=== PATIENT | female | born 1985 | race Caucasian/White ===

== ENCOUNTER → 2018-10-06 10:06 | Outpatient (CLI) | payer OTHER, SELFPAY ==
[2018-10-06 11:49] LABS: Free T4, Direct Thyroxine 1.03 ng/dL (0.78-2.19)
[2018-10-06 12:03] LABS: Thyroid Stimulating Hormone 2.43 uIU/mL (0.47-4.68)
[2018-10-06 12:30] LABS: Testosterone 39.6 ng/dL (5.71-77.0)
[2018-10-08 16:21] LABS: Anti Thyroglobulin Antibody 1 IU/mL (< 2); Thyroid Peroxidase Antibodies 2 IU/mL (< 9)
== END ==
PROVIDERS: PCP Family Medicine; Visit Provider Family Medicine
DX: E03.8 Other specified hypothyroidism (principal)
CPT/HCPCS: 36415; 84403; 84439; 84443; 86376; 86800

== ENCOUNTER → 2020-09-02 16:12 | Outpatient (CLI) | payer OTHER, SELFPAY ==
--- NOTE | 2020-09-02 | DI.RAD.S_ITS ---
PROCEDURE: XR CERVICAL SPINE 2V OR 3V INDICATIONS: Cervicalgia/Headache TECHNIQUE: 3 view(s) of the cervical spine were acquired. COMPARISON: None. FINDINGS: Bones: No fracture. Disc spaces appear grossly preserved. Diffuse mild facet arthropathy Soft tissues: No prevertebral soft tissue swelling. IMPRESSION: Mild facet arthropathy Dictated by: Cuate Christian M.D. on 09/02/2020 at 17:09 Approved by: Cuate Christian M.D. on 09/02/2020 at 17:12
== END ==
PROVIDERS: PCP Family Medicine; Referring Provider Chiropractor; Visit Provider Chiropractor
DX: M54.2 Cervicalgia (principal); R51.0 Headache with orthostatic component, not elsewhere classified; M47.812 Spondylosis without myelopathy or radiculopathy, cervical region
CPT/HCPCS: 72040

== ENCOUNTER → 2020-09-05 08:33 | Outpatient (CLI) | payer OTHER, SELFPAY ==
--- NOTE | 2020-09-05 09:16 | DI.CT.S_ITS ---
PROCEDURE: CT SINUS SCREEN WO CON INDICATIONS: Chronic sinusitis, unspecified TECHNIQUE: Noncontrast 3.0 mm axial images acquired from the frontal sinuses to the mid-sella, with coronal and sagittal reformats. For radiation dose reduction, the following was used: automated exposure control, adjustment of mA and/or kV according to patient size. COMPARISON: None. FINDINGS: Image quality: Excellent. Paranasal sinuses are normally aerated. No mucosal thickening identified. No air-fluid levels. The ostiomeatal units are patent bilaterally. No osseous thickening, osseous remodeling or osseous erosive changes. Nasal septum is midline. No edwin bullosa or paradoxical turbinates. Type 2 cribriform plate noted. No variance in the ethmoid roof anatomy. The anterior ethmoid artery notches are protected bilaterally. No frontal recess cells. Sphenoid pneumatization pattern is sellar incomplete. Type 2 optic canals. IMPRESSION: No paranasal sinus mucosal thickening or air-fluid levels. Dictated by: Caity Horne MD, PhD on 09/05/2020 at 11:56 Approved by: Caity Horne MD, PhD on 09/05/2020 at 12:00
== END ==
PROVIDERS: PCP Family Medicine; Referring Provider Family Medicine; Visit Provider Otolaryngology
DX: J32.9 Chronic sinusitis, unspecified (principal)
CPT/HCPCS: 70486

== ENCOUNTER 2021-03-10 11:17 | Emergency (ER) | payer OTHER, SELFPAY ==
--- NOTE | 2021-03-10 11:21 | DI.RAD.S_ITS ---
PROCEDURE: XR CHEST 2V INDICATIONS: covid +, decrease sats laying flat TECHNIQUE: 2 views of the chest were acquired. COMPARISON: None. FINDINGS: Surgical changes and devices: None. Lungs and pleura: Subtle patchy opacities noted in the right lung suspicious for pneumonia. No pleural effusions or pneumothorax. Mediastinum: Mediastinal contours are normal. Heart size is normal. Bones and chest wall: No suspicious bony abnormalities. Soft tissues appear unremarkable. IMPRESSION: Subtle patchy opacities in the right lung suspicious for pneumonia. Dictated by: Caity Horne MD, PhD on 03/10/2021 at 11:46 Approved by: Caity Horne MD, PhD on 03/10/2021 at 11:47
--- NOTE | 2021-03-10 11:21 | PC.NURSE ---
Eyeballed patient at front sight attacher, no acute resp distress. Chest xray ordered
[2021-03-10 12:05] VITALS: BP 136/64; PULSE 107; RESP 12; TEMP 36.7; O2SAT 95; BMI 41.0
[2021-03-10 13:35] VITALS: BP 137/70; PULSE 104; RESP 22; O2SAT 94
--- NOTE | 2021-03-10 13:37 | PC.NURSE ---
+ covid, sent for chest x ray. Able to speak in full sentences. No acute distress.
--- NOTE | 2021-03-10 13:38 | ED_ITS ---
HPI - URI/Sore Throat <SHERIF Cervantes - Last Filed: 03/10/21 17:43> General Chief Complaint: Upper Respiratory Symptoms Stated Complaint: covid+, dr nivia chest xray Time Seen by Provider: 03/10/21 13:01 Source: patient Mode of arrival: Ambulatory History of Present Illness HPI Narrative: The patient is a 35-year-old female nonsmoker with history of COVID-19, diagnosed last Wednesday. she noted that her home SpO2 monitor decreased to the high 80s when she laid down sometimes, so she contacted her primary care provider, who referred them to the emergency department for chest x-ray. She denies any fevers muscle aches or chills at this point time. He is eating and drinking well, though notes that she should drink some more. She complains of slight dysuria that happened this morning. She states that the cough is keeping her awake and she needs to get this out of my chest. she states she is concerned about pneumonia. She was not vaccinated. Related Data Home Medications Medication Instructions Recorded Confirmed LEVOTHYROXINE SODIUM 0.1 mg PO QDAY #0 03/07/12 12/13/20 Previous Rx's Medication Instructions Recorded ibuprofen 800 mg tablet 800 mg PO TIDP PRN #20 tab 06/01/16 benzonatate 100 mg capsule 100 mg PO BID-TID PRN #20 cap 03/10/21 (Martir Alonso) Allergies Allergy/AdvReac Type Severity Reaction Status Date / Time bupropion [BUPROPION] Allergy Intermediate hives/itchi Verified 03/10/21 12:10 ng albuterol [From VENTOLIN HFA] Allergy Mild REDNESS Verified 03/10/21 12:10 CHEST/NECK/FACE hydrocodone [From VICODIN] Allergy Mild REDNESS ON Verified 03/10/21 12:10 CHEST/NECK/FACE Penicillins [PENICILLINS] Allergy Unknown Verified 03/10/21 12:10 Review of Systems <SHERIF Cervantes - Last Filed: 03/10/21 17:43> Review of Systems Narrative: GENERAL: Denies chills, fatigue, malaise, fever, sweats. HEENT: Denies sinus pain, ear pain, sore throat, difficulty swallowing, dizziness. RESPIRATORY: see HPI CARDIOVASCULAR: Denies chest pain, palpitations, orthopnea, edema, GASTROINTESTINAL: Denies nausea, vomiting, abdominal pain, diarrhea, constipation, melena. : see HPI MUSCULOSKELETAL: denies weakness, joint pain, or bony pain SKIN: Denies rash, skin lesions, or other NEUROLOGIC: Denies weakness, headache, numbness, change in speech, confusion, seizures, incoordination. PSYCHIATRIC: No concerning psychosocial issues. 12 point review of systems is negative except for those stated above Patient History <SHERIF Cervantes - Last Filed: 03/10/21 17:43> Medical History Acute sinusitis Lymphadenopathy Otitis media with effusion Right hand pain Surgical History Status post delivery Status post hysteroscopy (04/08/16) Status post laparoscopic cholecystectomy Social History Smoking Status: Never smoker Smoking Status: Never smoker Substance Use Type: does not use Exam <SHERIF Cervantes - Last Filed: 03/10/21 17:43> Narrative Exam Narrative: GENERAL: This is a well-nourished, well-developed patient, in No acute distress HEAD: Atraumatic. Normocephalic. No temporal or scalp tenderness. EYES: Pupils equal round and reactive. Extraocular motions intact. No scleral icterus. No injection or drainage. ENT: Nose without bleeding, purulent drainage or septal hematoma. wearing a m ask. NECK: Trachea midline. No JVD or lymphadenopathy. Supple, nontender, no meningeal signs. CARDIOVASCULAR: Regular rate and rhythm RESPIRATORY: Clear to auscultation. Breath sounds equal bilaterally. No wheezes, rales, or rhonchi. occasional cough. No increased respiratory effort. Speaking full sentences. GASTROINTESTINAL: Abdomen soft, non-tender, nondistended. No hepato- splenomegaly, or palpable masses. No guarding. EXTREMITIES: No clubbing, cyanosis, or edema. No joint tenderness, effusion, or edema noted. BACK: Nontender without deformity or crepitance. No flank tenderness. NEURO: AOx3. SKIN: No rash or erythema On visible scanned Initial Vital Signs Initial Vital Signs: Vital Signs Temperature 98.1 F 03/10/21 12:05 Pulse Rate 107 H 03/10/21 12:05 Respiratory Rate 12 03/10/21 12:05 Blood Pressure 136/64 03/10/21 12:05 Pulse Oximetry 95 03/10/21 12:05 <Dominique Parks DO - Last Filed: 03/11/21 08:03> Initial Vital Signs Initial Vital Signs: Vital Signs Temperature 98.1 F 03/10/21 12:05 Pulse Rate 107 H 03/10/21 12:05 Respiratory Rate 12 03/10/21 12:05 Blood Pressure 136/64 03/10/21 12:05 Pulse Oximetry 95 03/10/21 12:05 Scores <SHERIF Cervantes - Last Filed: 03/10/21 17:43> GCS [place] coma scale eye opening: Spontaneous [place] coma scale verbal response: Orientated [place] coma scale motor response: Obey commands [place] coma scale total score: 15 <Dominique Parks DO - Last Filed: 03/11/21 08:03> GCS [place] coma scale total score: 15 Course <SHERIF Cervantes - Last Filed: 03/10/21 17:43> Orders Ordered: ED Orders 03/10/21 11:21 XR chest 2V Stat 03/10/21 14:05 Test Urine Stat Urinalysis and Microscopic Stat Vital Signs Vital signs: Vital Signs - 8 hr 03/10/21 12:05 03/10/21 13:35 03/10/21 14:55 Temperature 98.1 F Pulse Rate 107 H 104 H 99 H Respiratory Rate 12 22 18 Blood Pressure 136/64 137/70 Pulse Oximetry 95 94 97 <Dominique Parks DO - Last Filed: 03/11/21 08:03> Orders Ordered: ED Orders 03/10/21 11:21 XR chest 2V Stat 03/10/21 14:05 Test Urine Stat Urinalysis and Microscopic Stat Vital Signs Vital signs: Vital Signs - 8 hr 03/10/21 12:05 03/10/21 13:35 03/10/21 14:55 Temperature 98.1 F Pulse Rate 107 H 104 H 99 H Respiratory Rate 12 22 18 Blood Pressure 136/64 137/70 Pulse Oximetry 95 94 97 MDM - URI/Sore Throat <SHERIF Cervantes - Last Filed: 03/10/21 17:43> Lab Data Labs: Lab Results 03/10/21 03/10/21 Range/Units 14:05 14:05 Urine Color Yellow Urine Appearance Clear Urine pH 6.0 (4.5-8.0) Ur Specific [place] 1.020 (1.000-1.035) Urine Protein 2+ H (Negative) Urine Glucose (UA) Negative (Negative) g/dL Urine Ketones Negative (NEGATIVE) Urine Occult Blood Trace-intact (Negative) Urine Nitrate Negative (Negative) Urine Bilirubin Negative (NEGATIVE) Urine Urobilinogen 0.2 (0.2) E.U./dL Ur Leukocyte Esterase Negative (NEGATIVE) Urine RBC 1-5/hpf (0-5/HPF) Urine WBC None seen (0-5/HPF) Ur Squamous Epith Cells 1-5 /hpf (0-5/HPF) Urine Bacteria None seen (None) Ur Culture Indicated? Cult not indicated Urine Test Negative (Negative) Imaging Data Chest x-ray: Radiologist's Impression: [address] [place] [id number] ReportSigned Patient: Evita Valentin MMR#: [id number]: [id number]:[id number]/Sex: 35 / FDate of Service: 03/10/21Loc: EDAccession Number: [id number] Procedure: XR chest 2V Ordering Provider: Dominique Parks D.O. PROCEDURE: XR CHEST 2V INDICATIONS: covid +, decrease sats laying flat TECHNIQUE: 2 views of the chest were acquired. COMPARISON: None. FINDINGS: Surgical changes and devices: None. Lungs and pleura: Subtle patchy opacities noted in the right lung suspicious for pneumonia. No pleural effusions or pneumothorax. Mediastinum: Mediastinal contours are normal. Heart size is normal. Bones and chest wall: No suspicious bony abnormalities. Soft tissues appear unremarkable. IMPRESSION: Subtle patchy opacities in the right lung suspicious for pneumonia. Dictated by: Caity Horne MD, PhD on 03/10/2021 at 11:46 Approved by: Caity Horne MD, PhD on 03/10/2021 at 11:47 [facility] Narrative Medical decision making narrative: the patient is a 35-year-old female coronavirus positive who presents requesting a chest x-ray at the request of her primary care provider. Her x-rays concerning for a very subtle patchy opacities in the right lung. Given her positive coronavirus tetanus, this is likely a viral pneumonia. This is supported by the fact that she does not have high fevers vomiting etcetera. Discussed case with Dr Parks and elected to hold off on antibiotics at this point in time given viral cause. Patient ambulatory sat is 94%, patient appears in no acute distress. Did prescribe Tessalon Perles to help with cough. Discussed at length strict ER return precautions for significant shortness of breath etcetera. Discussed viral nature of COVID. Given patient's complaint of dysuria, urinalysis taken and negative. Patient has no questions or concerns upon discharge states understanding of return precautions as well as follow-up care. <Dominique Parks, - Last Filed: 03/11/21 08:03> Lab Data Labs: Lab Results 03/10/21 03/10/21 Range/Units 14:05 14:05 Urine Color Yellow Urine Appearance Clear Urine pH 6.0 (4.5-8.0) Ur Specific [place] 1.020 (1.000-1.035) Urine Protein 2+ H (Negative) Urine Glucose (UA) Negative (Negative) g/dL Urine Ketones Negative (NEGATIVE) Urine Occult Blood Trace-intact (Negative) Urine Nitrate Negative (Negative) Urine Bilirubin Negative (NEGATIVE) Urine Urobilinogen 0.2 (0.2) E.U./dL Ur Leukocyte Esterase Negative (NEGATIVE) Urine RBC 1-5/hpf (0-5/HPF) Urine WBC None seen (0-5/HPF) Ur Squamous Epith Cells 1-5 /hpf (0-5/HPF) Urine Bacteria None seen (None) Ur Culture Indicated? Cult not indicated Urine Test Negative (Negative) Discharge Plan Departure Patient Disposition: Home Clinical Impression: 2019 novel coronavirus disease (COVID-19), Dysuria Instructions: DI for Dysuria -- Adult, Coronavirus Disease 2019, Coronavirus 2019 Vaccine, Can COVID-19 be prevented? Activity Restrictions/Additional Instructions: Thank you for trusting us with your care today. As discussed, your oxygen saturations were good in the emergency department today. Given that you were diagnosed 1 week ago, you will likely start feeling better soon. I did send a prescription of Tessalon Perles to [facility] in [place]. This is a cough medication. Your urine shows no signs of infection. Please rest and push fluids. As discussed, please follow-up with primary care provider in the next few days. Please consider getting vaccinated for coronavirus when you are able. Prescriptions: New benzonatate [Tessalon Perles] 100 mg capsule 100 mg PO BID-TID PRN (Reason: cough) Qty: 20 RF: 0 No Action LEVOTHYROXINE SODIUM 0.1 mg PO QDAY Qty: 0 RF: 0 ibuprofen 800 MG tablet 800 mg PO TIDP PRNQty: 20 RF: 0 Referrals: Rahul Jeffers MD [Primary Care Provider] - <Dominique Parks DO - Last Filed: 03/11/21 08:03> Cosign ED Attending Cosledyature Attestation: I was immediately available in the department for consultation. Documentation has been reviewed, case was discussed agree with plan.
[2021-03-10 14:12] LABS: Bacteria Urine None Seen; WBC Urine None Seen (0-5/HPF)
[2021-03-10 14:13] LABS: Appearance Urine UA CLEAR; Bilirubin Urine UA NEGATIVE (NEGATIVE); Color Urine UA YELLOW; Glucose Urine UA NEGATIVE (Negative); Ketones Urine UA NEGATIVE (NEGATIVE); Leukocyte Esterase Urine UA NEGATIVE (NEGATIVE); Nitrite Urine UA NEGATIVE (Negative); Occult Blood Urine UA TRACE-INTACT (Negative); Protein Urine UA 2+ (Negative); Urobilinogen Urine UA 0.2 E.U./dL (0.2)
[2021-03-10 14:17] LABS: Culture Indicated Urine Cult Not Indicated; RBC Urine 1-5/HPF (0-5/HPF); Squamous Epithelial Cell Urine 1-5 /HPF (0-5/HPF)
[2021-03-10 14:27] LABS: Pregnancy Test Urine Negative (Negative)
[2021-03-10 14:55] VITALS: PULSE 99; RESP 18; O2SAT 97
== END 2021-03-10 15:03 | disposition home or self-care (01) ==
PROVIDERS: Emergency Provider Nurse Practitioner Family; PCP Family Medicine
DX: U07.1 COVID-19 (principal); R30.0 Dysuria
CPT/HCPCS: 71046; 81001; 81025; 99283

== ENCOUNTER → 2021-03-31 11:24 | Outpatient (CLI) | payer OTHER, SELFPAY ==
--- NOTE | 2021-03-31 11:25 | DI.RAD.S_ITS ---
PROCEDURE: XR CHEST 2V INDICATIONS: cough, r/o pneumonia TECHNIQUE: 2 views of the chest were acquired. COMPARISON: [facility], , XR CHEST 2V, 03/10/2021, 11:27. FINDINGS: Surgical changes and devices: None. Lungs and pleura: Right sided airspace opacity is appear to have resolved when compared to the radiographs from 03/10/2021. No pleural effusions or pneumothorax. Mediastinum: Mediastinal contours are normal. Heart size is normal. Bones and chest wall: No suspicious bony abnormalities. Soft tissues appear unremarkable. IMPRESSION: No acute cardiopulmonary abnormality. Dictated by: Asad Marcos M.D. on 03/31/2021 at 11:57 Approved by: Asad Marcos M.D. on 03/31/2021 at 11:58
== END ==
PROVIDERS: PCP Family Medicine; Referring Provider Nurse Practitioner; Visit Provider Nurse Practitioner
DX: R05 Cough (principal)
CPT/HCPCS: 71046

== ENCOUNTER → 2021-04-26 11:02 | Outpatient (CLI) | payer OTHER, SELFPAY ==
--- NOTE | 2021-04-26 | DI.RAD.S_ITS ---
PROCEDURE: XR CHEST 2V INDICATIONS: COUGH TECHNIQUE: 2 views of the chest were acquired. COMPARISON: [facility], , XR CHEST 2V, 03/31/2021, 11:24. [facility], CR, XR CHEST 2V, 03/10/2021, 11:27. FINDINGS: Surgical changes and devices: Cholecystectomy clips are seen. Lungs and pleura: Lungs are clear. No pleural effusions or pneumothorax. Mediastinum: Mediastinal contours are normal. Heart size is normal. Bones and chest wall: No suspicious bony abnormalities. Soft tissues appear unremarkable. IMPRESSION: Plain film study within normal limits. Dictated by: Morales Howard M.D. on 04/26/2021 at 10:32 Approved by: Morales Howard M.D. on 04/26/2021 at 10:32
== END ==
PROVIDERS: PCP Family Medicine; Referring Provider Family Medicine; Visit Provider Family Medicine
DX: R05 Cough (principal)
CPT/HCPCS: 71046

== ENCOUNTER → 2021-07-21 09:33 | Outpatient (CLI) | payer OTHER, SELFPAY ==
--- NOTE | 2021-07-21 | DI.US.S_ITS ---
PROCEDURE: US EXTREMITY NONVASC LOWER LT INDICATIONS: Benign lipomatous neoplasm, unspecified TECHNIQUE: Real-time scanning was performed of the left thigh, with image documentation. COMPARISON: None. FINDINGS: No abnormal mass identified by sonographic interrogation. No soft tissue edema or soft tissue fluid collections. No enlarged lymph nodes. IMPRESSION: No sonographic abnormality identified in region of reported palpable lump in the left thigh. Decision to biopsy should be based on clinical assessment. Dictated by: Caity Horne MD, PhD on 07/21/2021 at 11:43 Approved by: Caity Horne MD, PhD on 07/21/2021 at 11:45
== END ==
PROVIDERS: PCP Physician Assistant; Referring Provider Physician Assistant; Visit Provider Physician Assistant
DX: D17.9 Benign lipomatous neoplasm, unspecified (principal)
CPT/HCPCS: 76882

== ENCOUNTER 2021-11-02 05:17 | Emergency (ER) | payer OTHER, SELFPAY ==
[2021-11-02 05:23] VITALS: BP 182/88; PULSE 99; RESP 16; TEMP 37.4; O2SAT 100; BMI 43.1
--- NOTE | 2021-11-02 05:29 | ED_ITS ---
HPI - Abdominal Pain <Shawn Brown DO - Last Filed: 11/02/21 23:06> General Chief Complaint: Abdominal Pain Stated Complaint: LOWER BACK PAIN/ABD PAIN Time Seen by Provider: 11/02/21 05:19 History of Present Illness HPI narrative: 36-year-old female nonsmoker with noncontributory medical history presents with a chief complaint of loose stools for much of the week in the absence of pain, bleeding, fever or chills. Yesterday she took some Imodium and has had no loose stools in the aftermath but as the day wore on developed rather significant epigastric pain that radiates to her back. This pain is persistent in reminds her of when her gallbladder was acting up but she had surgery to have it removed. She states the pain is persistent but seems to be worsened by taking a deep breath or moving. She denies runny nose or sore throat. She denies any chest pain or shortness of breath. She denies any change in medications otherwise. She has been practicing intermittent fasting but otherwise has no change in her diet. She denies recent antibiotics, international travel, exposure to bad foods or other sick persons. She does not drink alcohol Related Data Home Medications Medication Instructions Recorded Confirmed LEVOTHYROXINE SODIUM 0.1 mg PO QDAY #0 03/07/12 10/30/21 propranolol 10 mg tablet 10 mg PO BID 10/30/21 10/30/21 Previous Rx's Medication Instructions Recorded ibuprofen 800 mg tablet 800 mg PO TIDP PRN #20 tab 06/01/16 benzonatate 100 mg capsule 100 mg PO BID-TID PRN #20 cap 03/10/21 (Martir Alonso) codeine 8 mg-guaifenesin 200 mg/5 5 ml PO Q4-6H PRN #473 ml 03/27/21 mL oral liquid inhalational spacing device #1 ea 03/31/21 (Aerochamber MV) Allergies Allergy/AdvReac Type Severity Reaction Status Date / Time bupropion [BUPROPION] Allergy Intermediate hives/itchi Verified 10/30/21 08:46 ng albuterol [From VENTOLIN HFA] Allergy Mild REDNESS Verified 10/30/21 08:46 CHEST/NECK/FACE hydrocodone [From VICODIN] Allergy Mild REDNESS ON Verified 10/30/21 08:46 CHEST/NECK/FACE Penicillins [PENICILLINS] Allergy Unknown Verified 10/30/21 08:46 Review of Systems <Shawn Brown DO - Last Filed: 11/02/21 23:06> Review of Systems Narrative: GENERAL: See HP. HEENT: Denies sinus pain, ear pain, sore throat, difficulty swallowing, dizziness. RESPIRATORY: Denies dyspnea, cough, wheezing, hemoptysis, sputum. CARDIOVASCULAR: Denies chest pain, palpitations, orthopnea, edema, GASTROINTESTINAL: See HPI : Denies dysuria, frequency, incontinence, hematuria, urinary retention. MUSCULOSKELETAL: denies weakness, joint pain, or bony pain SKIN: Denies rash, skin lesions, or other NEUROLOGIC: Denies weakness, headache, numbness, change in speech, confusion, seizures, incoordination. PSYCHIATRIC: No concerning psychosocial issues. 12 point review of systems is negative except for those stated above Patient History <Shawn Brown DO - Last Filed: 11/02/21 23:06> Medical History Acute sinusitis Lymphadenopathy Otitis media with effusion Right hand pain Surgical History Status post delivery Status post hysteroscopy (04/08/16) Status post laparoscopic cholecystectomy Social History Smoking Status: Never smoker Smoking Status: Never smoker Substance Use Type: does not use Exam <Shawn Brown DO - Last Filed: 11/02/21 23:06> Narrative Exam Narrative: GENERAL: [36] year old patient appears stated age. Well-developed patient, in mild distress. HEAD: Atraumatic. Normocephalic. EYES: Pupils equal round and reactive. Extraocular motions intact. No scleral icterus. No injection or drainage. ENT: Nose without bleeding, purulent drainage. Throat without erythema, tonsillar hypertrophy or exudate. Airway patent. NECK: Trachea midline. Non tender CARDIOVASCULAR: Regular rate and rhythm without murmurs, gallops, or rubs. RESPIRATORY: Clear to auscultation. Breath sounds equal bilaterally. No wheezes, rales, or rhonchi. GASTROINTESTINAL: Abdomen soft, minimally tender to palpation of upper abdomen, nondistended. EXTREMITIES: No edema or joint tenderness. BACK: Nontender without deformity or crepitance. No flank tenderness. NEURO: AOx3. SKIN: No rash or erythema of visible areas Initial Vital Signs Initial Vital Signs: Vital Signs Temperature 99.3 F 11/02/21 05:23 Pulse Rate 99 H 11/02/21 05:23 Respiratory Rate 16 11/02/21 05:23 Blood Pressure 182/88 H 11/02/21 05:23 Pulse Oximetry 100 11/02/21 05:23 <Mike Gordon DO - Last Filed: 11/02/21 07:51> Initial Vital Signs Initial Vital Signs: Vital Signs Temperature 99.3 F 11/02/21 05:23 Pulse Rate 99 H 11/02/21 05:23 Respiratory Rate 16 11/02/21 05:23 Blood Pressure 182/88 H 11/02/21 05:23 Pulse Oximetry 100 11/02/21 05:23 Course <Shawn Brown DO - Last Filed: 11/02/21 23:06> Orders Ordered: Discontinued Medications Hydromorphone HCl (Hydromorphone 0.5 Mg Inj) 0.5 mg IV NOW ONE Stop: 11/02/21 05:30 Last Admin: 11/02/21 05:37 Dose: 0.5 mg Documented by: RONNA Sodium Chloride (Normal Saline 0.9%) 1,000 mls @ 1,000 mls/hr IV BOLUS ONE Stop: 11/02/21 06:28 Last Infusion: 11/02/21 07:30 Dose: 0 mls/hr Documented by: Admin: 11/02/21 05:37 Dose: 1,000 mls/hr Documented by: RONNA Ondansetron HCl (Ondansetron 4 Mg/2 Ml Inj) 4 mg IV NOW ONE Stop: 11/02/21 05:30 Last Admin: 11/02/21 05:37 Dose: 4 mg Documented by: RONNA Vital Signs Vital signs: Vital Signs - 8 hr 11/02/21 05:23 Temperature 99.3 F Pulse Rate 99 H Respiratory Rate 16 Blood Pressure 182/88 H Pulse Oximetry 100 <DO Tyler Go Last Filed: 11/02/21 07:51> Orders Ordered: Discontinued Medications Hydromorphone HCl (Hydromorphone 0.5 Mg Inj) 0.5 mg IV NOW ONE Stop: 11/02/21 05:30 Last Admin: 11/02/21 05:37 Dose: 0.5 mg Documented by: RONNA Sodium Chloride (Normal Saline 0.9%) 1,000 mls @ 1,000 mls/hr IV BOLUS ONE Stop: 11/02/21 06:28 Last Infusion: 11/02/21 07:30 Dose: 0 mls/hr Documented by: Admin: 11/02/21 05:37 Dose: 1,000 mls/hr Documented by: RONNA Ondansetron HCl (Ondansetron 4 Mg/2 Ml Inj) 4 mg IV NOW ONE Stop: 11/02/21 05:30 Last Admin: 11/02/21 05:37 Dose: 4 mg Documented by: RONNA Vital Signs Vital signs: Vital Signs - 8 hr 11/02/21 05:23 Temperature 99.3 F Pulse Rate 99 H Respiratory Rate 16 Blood Pressure 182/88 H Pulse Oximetry 100 MDM - Abdominal Pain <Shawn Brown DO - Last Filed: 11/02/21 23:06> Lab Data Result diagrams: 11/02/21 05:30 11/02/21 05:30 Labs: Lab Results 11/02/21 11/02/21 Range/Units 05:30 05:30 WBC 7.3 (4.5-11.0) X10^3/uL RBC 4.97 (4.0-5.2) X10^6/uL Hgb 14.4 (12.0-16.0) g/dL Hct 42.7 (36-46) % MCV 85.9 (80-100) fL MCH 28.9 (26-34) PG MCHC 33.6 (30-36) % RDW 13.4 (11.6-14.8) % Plt Count 282 (150-400) X10^3/uL Neut % (Auto) 69.6 (50-75) % Lymph % (Auto) 22.0 L (25-40) % [place] % (Auto) 7.7 (3-14) % Eos % (Auto) 0.4 L (2-4) % Baso % (Auto) 0.3 (0-2) % Neut # (Auto) 5100 (3707-9594) /uL Lymph # (Auto) 1600 (8225-2051) /uL [place] # (Auto) 600 (0-900) /uL Eos # (Auto) 0 (0-450) /uL Baso # (Auto) 0 (0-100) /uL Sodium 138 (137-145) mmol/L Potassium 3.9 (3.4-5.1) mmol/L Chloride 107 (98-107) mmol/L Carbon Dioxide 25 (22-32) mmol/L BUN 6 L (7-17) mg/dL Creatinine 0.63 (0.52-1.04) mg/dL Estimated GFR > 60.0 (>60) mL/min BUN/Creatinine Ratio 9.5 (6-22) Glucose 117 H (70-100) mg/dL Calcium 9.5 (8.4-10.2) mg/dL Total Bilirubin 0.8 (0.2-1.3) mg/dL AST 33 (14-36) IU/L ALT 53 H (<35) IU/L Alkaline Phosphatase 60 (38-126) U/L Total Protein 7.9 (6.3-8.2) g/dL Albumin 4.5 (3.5-5.0) g/dL Globulin 3.4 (1.7-4.1) g/dL Albumin/Globulin Ratio 1.3 (1.0-2.8) Lipase 93 (23-300) U/L Point of care testing: Point of Care Testing Test Results Positive Urine Dip Bedside Urine Glucose Negative Bedside Urine Bilirubin - Negative Bedside Urine Ketone - Negative Urine Specific [place] 1.020 Bedside Urine Occult Blood +/- Bedside Urine pH 5.5 Bedside Urine Protein - Negative Bedside Urine Urobilinogen - Negative Bedside Urine Nitrite - Negative Bedside Urine Leukocytes - Negative Esterase MDM Narrative Medical decision making narrative: 0700 - patient signed out to Dr. Gordon. Thus far her history and physical exam as well as labs and x-ray are reassuring. We had an extensive discussion at the bedside about pursuing diagnosis with advanced imaging and after that discussion patient would prefer a CT of the abdomen and pelvis with IV contrast. This has been ordered. Dr. Gordon will await CT findings Dr Gordon: Received turned over. Review patient's history and physical exam. Reviewed patient's radiologic studies. At the time of turnover we are waiting for CT results which ultimately did not show any signs of acute findings. I discussed the CT with the patient. We discussed her presenting symptoms. We discussed the use of anti diarrheal medicines. No indication for antibiotics. Will have patient follow-up with primary provider. She was given return precautions. She expressed understanding and agreement. <Mike Gordon, DO - Last Filed: 11/02/21 07:51> Lab Data Labs: Lab Results 11/02/21 11/02/21 Range/Units 05:30 05:30 WBC 7.3 (4.5-11.0) X10^3/uL RBC 4.97 (4.0-5.2) X10^6/uL Hgb 14.4 (12.0-16.0) g/dL Hct 42.7 (36-46) % MCV 85.9 (80-100) fL MCH 28.9 (26-34) PG MCHC 33.6 (30-36) % RDW 13.4 (11.6-14.8) % Plt Count 282 (150-400) X10^3/uL Neut % (Auto) 69.6 (50-75) % Lymph % (Auto) 22.0 L (25-40) % [place] % (Auto) 7.7 (3-14) % Eos % (Auto) 0.4 L (2-4) % Baso % (Auto) 0.3 (0-2) % Neut # (Auto) 5100 (0153-9585) /uL Lymph # (Auto) 1600 (8075-1104) /uL [place] # (Auto) 600 (0-900) /uL Eos # (Auto) 0 (0-450) /uL Baso # (Auto) 0 (0-100) /uL Sodium 138 (137-145) mmol/L Potassium 3.9 (3.4-5.1) mmol/L Chloride 107 (98-107) mmol/L Carbon Dioxide 25 (22-32) mmol/L BUN 6 L (7-17) mg/dL Creatinine 0.63 (0.52-1.04) mg/dL Estimated GFR > 60.0 (>60) mL/min BUN/Creatinine Ratio 9.5 (6-22) Glucose 117 H (70-100) mg/dL Calcium 9.5 (8.4-10.2) mg/dL Total Bilirubin 0.8 (0.2-1.3) mg/dL AST 33 (14-36) IU/L ALT 53 H (<35) IU/L Alkaline Phosphatase 60 (38-126) U/L Total Protein 7.9 (6.3-8.2) g/dL Albumin 4.5 (3.5-5.0) g/dL Globulin 3.4 (1.7-4.1) g/dL Albumin/Globulin Ratio 1.3 (1.0-2.8) Lipase 93 (23-300) U/L Point of care testing: Point of Care Testing Test Results Positive Urine Dip Bedside Urine Glucose Negative Bedside Urine Bilirubin - Negative Bedside Urine Ketone - Negative Urine Specific [place] 1.020 Bedside Urine Occult Blood +/- Bedside Urine pH 5.5 Bedside Urine Protein - Negative Bedside Urine Urobilinogen - Negative Bedside Urine Nitrite - Negative Bedside Urine Leukocytes - Negative Esterase Imaging Data CT scan - abdomen/pelvis: Radiologist's Impression: [place] [address] CT Scan Report Signed Patient: Evita Valentin MR#: [id number] : 1985 Acct:[id number] Age/Sex: 36 / F Date of Service: 11/02/21 Loc: ED Accession Number: [id number] ?? Procedure: CT abdomen pelvis w con Ordering Provider: Shawn Brown D.O. PROCEDURE:? CT ABDOMEN PELVIS W CON ? INDICATIONS:? severe abdomen and pelvis ? TECHNIQUE:? After the administration of intravenous contrast, axial sections acquired from the lung bases to the pubic symphysis.? Coronal and sagittal reformats were performed.? For radiation dose reduction, the following was used:? automated exposure control, adjustment of mA and/or kV according to patient size.? ? COMPARISON:? None. ? FINDINGS:? Image quality:? Excellent.? ? Lung bases:? Unremarkable. Heart:? No significant findings. ? ABDOMEN: Liver:? Liver is normal in size.? Moderate hepatic steatosis is seen, no discrete hepatic lesion is noted.? ? Gallbladder:? Gallbladder is surgically absent. Biliary ducts:? Unremarkable.? ? Pancreas:? Unremarkable.? ? Spleen:? Unremarkable.? ? Adrenal Glands:? Unremarkable.? ? Kidneys and Ureters:? Unremarkable.? ? ? Stomach and Bowel:? Stomach, small bowel loops, and colon are unremarkable.? Appendix is visualized and is within normal limits. Peritoneum:? No abnormal intraperitoneal fluid.? No free air.? ? Ventral Wall: ? No hernias.? Abdominal Nodes:? No retroperitoneal or mesenteric adenopathy by size criteria.? Vessels:? Aorta and inferior vena cava are normal in size.? ? PELVIS: Pelvic Organs:? Unremarkable.? ? Bladder:? Unremarkable.? ? Pelvic Nodes: No enlarged lymph nodes.? Miscellaneous: No hernias are seen. ? ? ? Bones:? No suspicious bony lesion.? No acute vertebral body compression fracture. ? ? IMPRESSION:? 1. No acute inflammatory process is seen in abdomen or pelvis.? No free fluid or free air.? Normal appendix. 2. Moderate hepatic steatosis.? No discrete hepatic lesion.? ? ? Dictated by: Jef Dewitt M.D. on 11/02/2021 at 7:29 ? ? Approved by: Jef Dewitt M.D. on 11/02/2021 at 7:31 Abdominal x-ray: Radiologist's Impression: Normal heart and lungs Normal bowel gas pattern MDM Narrative Medical decision making narrative: Dr Gordon: Received turned over. Review patient's history and physical exam. Reviewed patient's radiologic studies. At the time of turnover we are waiting for CT results which ultimately did not show any signs of acute findings. I discussed the CT with the patient. We discussed her presenting symptoms. We discussed the use of anti diarrheal medicines. No indication for antibiotics. Will have patient follow-up with primary provider. She was given return precautions. She expressed understanding and agreement. Discharge Plan Departure Patient Disposition: Home Clinical Impression: Diarrhea Instructions: Diarrhea Activity Restrictions/Additional Instructions: I recommend that you continue to take all of your medications as directed. Be sure to stay hydrated because diarrhea can cause you to lose quite a bit of fluid. Contact your primary doctor for a follow-up. Return to the emergency department for any new or worsening symptoms. Prescriptions: No Action codeine-guaifenesin 8-200 mg/5 mL liquid 5 ml PO Q4-6H PRN (Reason: cough) Qty: 473 0RF (DME) Aerochamber MV Spacer See Rx Instructions .Route Qty: 1 0RF Rx Instructions: As directed propranolol 10 mg tablet 10 mg PO BID 0RF LEVOTHYROXINE SODIUM 0.1 mg PO QDAY Qty: 0 0RF ibuprofen 800 MG tablet 800 mg PO TIDP PRNQty: 20 0RF benzonatate [Tessalon Perles] 100 mg capsule 100 mg PO BID-TID PRN (Reason: cough) Qty: 20 0RF Referrals: Zaina Lin PA-C [Primary Care Provider] -
--- NOTE | 2021-11-02 05:30 | DI.RAD.S_ITS ---
PROCEDURE: XR ACUTE ABDOMEN SERIES INDICATIONS: Abdominal pain, nausea, diarrhea TECHNIQUE: One view chest and two views of the abdomen were acquired. COMPARISON: [facility], CT, CT ABDOMEN PELVIS W CON, 11/02/2021, 7:01. FINDINGS: Surgical changes and devices: Cholecystectomy clips are seen. Several additional postoperative clips are seen. Chest: Lungs are clear. Heart size is normal. No pleural effusions. No pneumoperitoneum. Abdomen: Bowel gas pattern is normal. No suspicious calcifications. Visualized solid organ contours appear normal. Bones: No suspicious bony lesions. IMPRESSION: A nonobstructive bowel gas pattern is seen. If clinically appropriate, please consider a repeat plain film study or a dedicated CT of the abdomen and pelvis, if the patient's symptoms persist or worsen. Cholecystectomy clips and several additional postoperative clips are seen. Note: No significant discrepancy from the preliminary report. Dictated by: Morales Howard M.D. on 11/02/2021 at 7:23 Approved by: Morales Howard M.D. on 11/02/2021 at 7:27
[2021-11-02] MEDS: ONDANSETRON 4 MG/2 ML INJ IV (05:37)
[2021-11-02] MEDS: HYDROMORPHONE 0.5 MG INJ IV (05:37)
[2021-11-02] MEDS: SODIUM CHLORIDE 0.9% 1,000 ML 1000 ML IV (05:37)
[2021-11-02 05:48] LABS: Add Manual Diff / Slide Review NO; Basophils Absolute Auto 0 /uL (0-100); Basophils Percent Auto 0.3 % (0-2); Eosinophils Absolute Auto 0 /uL (0-450); Eosinophils Percent Auto 0.4 % (2-4); Hematocrit 42.7 % (36-46); Hemoglobin 14.4 g/dL (12.0-16.0); Lymphocytes Absolute Auto 1600 /uL (1100-4500); Mean Corpuscular HGB Conc 33.6 % (30-36); Mean Corpuscular Hemoglobin 28.9 PG (26-34); Mean Corpuscular Volume 85.9 fL (80-100); Monocytes Absolute Auto 600 /uL (0-900); Monocytes Percent Auto 7.7 % (3-14); Neutrophils Absolute Auto 5100 /uL (1500-7000); Neutrophils Percent Auto 69.6 % (50-75); Platelet Count 282 X10^3/uL (150-400); Red Blood Cell Count 4.97 X10^6/uL (4.0-5.2); Red Cell Distribution Width 13.4 % (11.6-14.8); White Blood Cell Count 7.3 X10^3/uL (4.5-11.0)
[2021-11-02 06:00] LABS: Alanine Aminotransferase 53 IU/L (<35); Albumin 4.5 g/dL (3.5-5.0); Albumin Globulin Ratio 1.3 (1.0-2.8); Alkaline Phosphatase 60 U/L (38-126); Aspartate Aminotransferase 33 IU/L (14-36); BUN Creatinine Ratio 9.5 (6-22); Bilirubin Total 0.8 mg/dL (0.2-1.3); Blood Urea Nitrogen 6 mg/dL (7-17); Calcium 9.5 mg/dL (8.4-10.2); Carbon Dioxide 25 mmol/L (22-32); Chloride 107 mmol/L (98-107); Estimated Glomerular Filt Rate > 60.0 mL/min (>60); Globulin 3.4 g/dL (1.7-4.1); Glucose 117 mg/dL (70-100); HEMOLYSIS < 15 (0-50); Lipase 93 U/L (23-300); Potassium 3.9 mmol/L (3.4-5.1); Sodium 138 mmol/L (137-145); Total Protein 7.9 g/dL (6.3-8.2)
--- NOTE | 2021-11-02 06:44 | DI.CT.S_ITS ---
PROCEDURE: CT ABDOMEN PELVIS W CON INDICATIONS: severe abdomen and pelvis TECHNIQUE: After the administration of intravenous contrast, axial sections acquired from the lung bases to the pubic symphysis. Coronal and sagittal reformats were performed. For radiation dose reduction, the following was used: automated exposure control, adjustment of mA and/or kV according to patient size. COMPARISON: None. FINDINGS: Image quality: Excellent. Lung bases: Unremarkable. Heart: No significant findings. ABDOMEN: Liver: Liver is normal in size. Moderate hepatic steatosis is seen, no discrete hepatic lesion is noted. Gallbladder: Gallbladder is surgically absent. Biliary ducts: Unremarkable. Pancreas: Unremarkable. Spleen: Unremarkable. Adrenal Glands: Unremarkable. Kidneys and Ureters: Unremarkable. Stomach and Bowel: Stomach, small bowel loops, and colon are unremarkable. Appendix is visualized and is within normal limits. Peritoneum: No abnormal intraperitoneal fluid. No free air. Ventral Wall: No hernias. Abdominal Nodes: No retroperitoneal or mesenteric adenopathy by size criteria. Vessels: Aorta and inferior vena cava are normal in size. PELVIS: Pelvic Organs: Unremarkable. Bladder: Unremarkable. Pelvic Nodes: No enlarged lymph nodes. Miscellaneous: No hernias are seen. Bones: No suspicious bony lesion. No acute vertebral body compression fracture. IMPRESSION: 1. No acute inflammatory process is seen in abdomen or pelvis. No free fluid or free air. Normal appendix. 2. Moderate hepatic steatosis. No discrete hepatic lesion. Dictated by: Jef Dewitt M.D. on 11/02/2021 at 7:29 Approved by: Jef Dewitt M.D. on 11/02/2021 at 7:31
[2021-11-02 08:04] VITALS: BP 145/82; PULSE 85; RESP 16; O2SAT 98
== END 2021-11-02 08:19 | disposition home or self-care (01) ==
PROVIDERS: Emergency Medicine; Emergency Provider Emergency Medicine; PCP Physician Assistant
DX: R19.7 Diarrhea, unspecified (principal); Z88.5 Allergy status to narcotic agent
CPT/HCPCS: 36415; 74022; 74177; 80053; 81003; 81025; 83690; 85025; 96361; 96374; 96375; 99284; J1170; J2405

== ENCOUNTER → 2022-05-22 18:22 | Outpatient (CLI) | payer OTHER, SELFPAY | PROVIDERS: PCP Family Medicine; Visit Provider Registered Nurse | DX: N39.0 Urinary tract infection, site not specified (principal) | CPT/HCPCS: 87086 ==

== ENCOUNTER 2022-05-26 05:23 | Emergency (ER) | payer OTHER, SELFPAY ==
[2022-05-26 05:30] VITALS: BP 195/114; PULSE 92; RESP 20; TEMP 36.6; O2SAT 98
--- NOTE | 2022-05-26 05:31 | ED.FEMALEGU ---
HPI - Female Genitourinary General Chief complaint: Urogenital-Female Stated complaint: bladder infection not better Time Seen by Provider: 05/26/22 05:31 History of Present Illness HPI Narrative: 36-year-old female nonsmoker with history of reactive airway disease presents with a chief complaint of ongoing dysuria, frequency and urgency. She is had a history of urinary tract infections and feels like this is the same. She went to the walk-in clinic a few days ago and had similar symptoms, she had a urine that was negative for infection but was started on Bactrim nonetheless. She presents tonight with ongoing symptoms. She denies any fever or chills nor nausea, vomiting or diarrhea. She denies any vaginal bleeding or discharge. She does complain of some lower abdominal and pelvic cramping and abnormal sensation in her vagina she states her last menstrual cycle was about 3 months ago Related Data Home Medications Medication Instructions Recorded Confirmed levothyroxine 100 mcg tablet 100 mcg PO DAILY 04/02/22 04/02/22 Previous Rx's Medication Instructions Recorded metronidazole 500 mg tablet 500 mg PO BID #14 tabs 05/26/22 Allergies Allergy/AdvReac Type Severity Reaction Status Date / Time bupropion [BUPROPION] Allergy Intermediate hives/itchi Verified 04/02/22 14:43 ng albuterol [From VENTOLIN HFA] Allergy Mild REDNESS Verified 04/02/22 14:43 CHEST/NECK/FACE hydrocodone [From VICODIN] Allergy Mild REDNESS ON Verified 04/02/22 14:43 CHEST/NECK/FACE Penicillins [PENICILLINS] Allergy Unknown Verified 04/02/22 14:43 Review of Systems Review of Systems Narrative: GENERAL: Denies chills, fatigue, malaise, fever, sweats. HEENT: Denies sinus pain, ear pain, sore throat, difficulty swallowing, dizziness. RESPIRATORY: Denies dyspnea, cough, wheezing, hemoptysis, sputum. CARDIOVASCULAR: Denies chest pain, palpitations, orthopnea, edema, GASTROINTESTINAL: Denies nausea, vomiting, abdominal pain, diarrhea, constipation, melena. : See HPI MUSCULOSKELETAL: denies weakness, joint pain, or bony pain SKIN: Denies rash, skin lesions, or other NEUROLOGIC: Denies weakness, headache, numbness, change in speech, confusion, seizures, incoordination. PSYCHIATRIC: No concerning psychosocial issues. 12 point review of systems is negative except for those stated above Patient History Medical History Acute sinusitis Hypothyroid Lymphadenopathy Otitis media with effusion Right hand pain Surgical History Status post delivery Status post hysteroscopy (04/08/16) Status post laparoscopic cholecystectomy Family History Father Gallstones alcohol intake frequency: 0-2 drinks per day Substance Use Type: does not use Exam Narrative Exam Narrative: GENERAL: [36] year old patient appears stated age. Well-developed patient, in mild distress. HEAD: Atraumatic. Normocephalic. EYES: Pupils equal round and reactive. Extraocular motions intact. No scleral icterus. No injection or drainage. ENT: Nose without bleeding, purulent drainage. Throat without erythema, tonsillar hypertrophy or exudate. Airway patent. NECK: Trachea midline. Non tender CARDIOVASCULAR: Regular rate and rhythm without murmurs, gallops, or rubs. RESPIRATORY: Clear to auscultation. Breath sounds equal bilaterally. No wheezes, rales, or rhonchi. GASTROINTESTINAL: Abdomen soft, very minimal if any suprapubic tenderness nondistended. PELVIC: No external abnormalities, moderate white thick discharge, no cervical motion tenderness, lacerations, lesions or adnexal fullness EXTREMITIES: No edema or joint tenderness. BACK: Nontender without deformity or crepitance. No flank tenderness. NEURO: AOx3. SKIN: No rash or erythema of visible areas Initial Vital Signs Initial Vital Signs: Vital Signs Temperature 98 F 05/26/22 05:30 Pulse Rate 92 H 05/26/22 05:30 Respiratory Rate 20 05/26/22 05:30 Blood Pressure 195/114 H 05/26/22 05:30 Pulse Oximetry 98 05/26/22 05:30 Oxygen Delivery Method 05/26/22 05:30 Course Orders Ordered: ED Orders 05/26/22 05:38 US pelvic complete Stat 05/26/22 06:15 Genital Culture Stat Wet Prep Tric BV Kaitlynn Stat 05/26/22 06:22 Chlamydia Gonorrhea PCR -URINE Stat Vital Signs Vital signs: Vital Signs - 8 hr 05/26/22 05:30 Temperature 98 F Pulse Rate 92 H Respiratory Rate 20 Blood Pressure 195/114 H Pulse Oximetry 98 Oxygen Delivery Method Room Air MDM - Female Genitourinary Lab Data Labs: Point of Care Testing Test Results Negative Urine Dip Bedside Urine Glucose Negative Bedside Urine Bilirubin - Negative Bedside Urine Ketone - Negative Urine Specific [place] 1.030 Bedside Urine Occult Blood +/- Bedside Urine pH 6 Bedside Urine Protein - Negative Bedside Urine Urobilinogen - Negative Bedside Urine Nitrite - Negative Bedside Urine Leukocytes - Negative Esterase Discharge Plan Departure Patient Disposition: Home Clinical Impression: Bacterial vaginosis Instructions: DI for Bacterial Vaginosis Activity Restrictions/Additional Instructions: *You have been diagnosed with [bacterial vaginosis] as we discussed your history and physical exam are reassuring, your urine shows no sign of infection and ultrasound has no significant findings. *What to do: *Please continue to take your regular medications as directed. [x ] New medication prescriptions sent to your pharmacy: [ [facility]] [ ] New medication written as a paper prescription [ ] No new medications given *Please follow up with your primary care provider in 2-3 days, call for an appointment. Let them know you were seen in the Emergency Department and that we ask that you be seen in follow up. We will electronically transmit a record of today's note if your PCP is in our system *Return to Emergency Department if you should have any new, worsening or concerning symptoms, such as [fever greater than 101 F, shaking chills, worsening pain, persistent vomiting or other bothersome symptoms] Prescriptions: New metronidazole 500 mg tablet 500 mg PO BID Qty: 14 0RF No Action levothyroxine 100 mcg tablet 100 mcg PO DAILY Referrals: Rahul Jeffers MD [Primary Care Provider] -
--- NOTE | 2022-05-26 05:35 | PC.NURSE ---
pt worried about ovarian cancer, she states on google it said that dysuria could be caused by ovarian cancer
--- NOTE | 2022-05-26 05:38 | DI.US.S_ITS ---
PROCEDURE: US PELVIC COMPLETE INDICATIONS: PAIN TECHNIQUE: Real-time scanning was performed of the pelvic organs, with image documentation. Additional endovaginal scanning was necessary due to incomplete visualization of the adnexal and endometrial structures by transabdominal scanning. COMPARISON: CT, KIDNEY/ URETER/BLADDER, 03/19/2014, 13:51. [facility], CT, CT ABDOMEN PELVIS W CON, 11/02/2021, 7:01. FINDINGS: Uterus: Uterus is anteverted and normal in size at 9.6 x 5.9 x 7.1 cm. The myometrium is homogeneous. The endometrium measures 9.5 mm combined thickness. Cervix is normal. Ovaries: The ovaries are not visualized. No adnexal mass. Other: No pathologic free abdominal or pelvic fluid. IMPRESSION: 1. Normal uterus. Ovaries are not visualized. A cause for pelvic pain is not identified No significant discrepancy with the welder 2nd shift radiology preliminary report. We strive to produce accurate, complete, and clear reports of imaging services. To assist us in improving patient care, this report was composed using standard report templates and voice recognition software. Therefore, it may contain abnormal punctuation, insertions and/or omissions. Occasional wrong-word or sound-alike substitutions may occur. Though we review the report and make efforts to correct it, we do recommend that the report be read carefully in proper context to recognize any text inaccuracies. Dictated by: Anna Marie Camp M.D. on 05/26/2022 at 8:19 Approved by: Anna Marie Camp M.D. on 05/26/2022 at 8:21
[2022-05-26 07:04] VITALS: BP 180/90; PULSE 88; RESP 18; O2SAT 88
== END 2022-05-26 07:05 | disposition home or self-care (01) ==
PROVIDERS: Emergency Provider Emergency Medicine; PCP Family Medicine
DX: N76.0 Acute vaginitis (principal)
CPT/HCPCS: 76830; 76856; 81003; 81025; 87070; 87205; 87210; 87252; 99284

== ENCOUNTER → 2022-08-18 09:18 | Outpatient (CLI) | payer OTHER, SELFPAY ==
[2022-08-18 11:36] LABS: COVID19 -Nasal RAPID Negative (Negative)
== END ==
PROVIDERS: PCP Family Medicine; Visit Provider Surgery
DX: Z01.812 Encounter for preprocedural laboratory examination (principal); Z20.822 Contact with and (suspected) exposure to COVID-19
CPT/HCPCS: 87635; C9803

== ENCOUNTER 2022-08-19 10:59 | Day surgery (SDC) | payer OTHER, SELFPAY ==
[2022-08-13 10:09] VITALS: BMI 45.3
[2022-08-19] VITALS (7 sets, daily range): BP systolic 125–157; BP diastolic 71–84; PULSE 103–140; RESP 11–18; TEMP 36.7–36.9; O2SAT 94–98; BMI 48.7
--- NOTE | 2022-08-19 | PATH_ITS ---
[facility] Accession Number: [id number] No. of containers..01 Tissue . 01 Material submitted: . breast - RIGHT BREAST MASS . 01 Clinical history: . RT LUMPECTOMY . 01 Diagnosis: Right Breast, Lumpectomy: Intraductal papilloma. - Negative for significant atypia and malignancy. MRV 08/21/2022 1246 Local . 01 Comment: The intraductal papilloma closely approximates the inferior margin of excision (to within less than 1 mm), but does not appear transected. The lesion is 3 mm in maximum dimension, as measured from the glass slide. There are no other significant pathologic abnormalities in the uninvolved breast tissue. . 01 Electronically signed: . Kamila Slaughter MD, Pathologist NPI- [id number] . 01 Gross description: . Received: In formalin labeled with the patient's name, , and right breast. Specimen: Oriented right lumpectomy. Weight: 6 grams. Measurement: 1.7 cm anterior to posterior, 2.5 cm medial to lateral, and 3.6 cm superior to inferior. Skin Ellipse: Absent. Wire: Absent. Margins: Oriented with a short stitch superior and a long stitch lateral per the requisition. Inked as follows: Anterior yellow, posterior black, medial blue, lateral green, superior orange, and inferior red. Sliced: From superior to inferior into seven 3 mm slices. Lesions: One. Description: Ill-defined pink-davidson soft lesion. Size: 1.2 x 1.1 x 0.4 cm. Slices Involved: Slices 1-4. Biopsy Site: Not identified. Distance To Margins: Adjacent to green, black, and orange margins, 0.2 cm form the yellow margin, and greater than 0.5 cm from all remaining margins. Other: The remaining cut surfaces are yellow to white fibroadipose tissue with fibrous tissue occupying less than 10% of the cut surface. No additional lesions are identified. The specimen was removed on 08/19/2022, time not provided. Cold ischemic time cannot be calculated. Total fixation time is approximately 35 hours. Submitted entirely as follows: A1-A2: Slice 1, orange margin perpendicular. A3: Slice 2, to include yellow, black, blue, and green margins. A4: Slice 3, to include yellow, black, blue, and green margins. A5: Slice 4, to include yellow, black, blue, and green margins. A6: Slice 5, to include yellow, black, blue, and green margins. A7: Slice 6, to include yellow, black, blue, and green margins. A8-A9: Slice 7, red margin perpendicular. ([id number]) /MRV 08/20/2022 1428 Local . 01 Pathologist provided ICD-10: N63.10 . 01 CPT . 143280 Specimen Comment: A courtesy copy of this report has been sent to [phone] Performed at: 01 [facility] [address] [place] [address], [place], [place] [id number] MD Nando Zhou MD Phone: [phone]
--- NOTE | 2022-08-19 11:18 | SUR.OPER ---
Supine on padded OR bed, head on pillow, arms secured on padded arm boards at <90 degrees abduction, legs uncrossed, safety belt at thigh, tape over blanket over lower legs.
--- NOTE | 2022-08-19 11:29 | PM.HP.1 ---
History of Present Illness History of Present Illness Date Patient Seen: 08/19/22 Time Patient Seen: 11:29 Chief complaint: Rt Lumpectomy Narrative: 37-year-old woman with a symptomatic right breast intra ductal papilloma here for elective excision. She has a 1 cm papiloma at 7 oclock position which was initially causing intermittent bloody discharge and now changed to clear. Please refer to the H&P from March 2022 for further detail. No interval changes in health. Patient History Medical History Acute sinusitis Hypothyroid Lymphadenopathy Otitis media with effusion Right hand pain Surgical History Status post delivery Status post hysteroscopy (04/08/16) Status post laparoscopic cholecystectomy Family & Social History Family History Father Gallstones Social History: household members spouse,children lives independently Yes Tobacco & Substance use: Smoking Status Never smoker alcohol intake current alcohol intake frequency 0-2 drinks per day Substance Use Type does not use Meds Home Medications and Allergies Home Medications Medication Instructions Recorded Confirmed Type levothyroxine 100 mcg tablet 100 mcg PO DAILY 04/02/22 08/19/22 History Allergies Allergy/AdvReac Type Severity Reaction Status Date / Time acetaminophen [From Percocet] Allergy Intermediate Hives Verified 08/19/22 11:21 albuterol Allergy Intermediate Hives Verified 08/19/22 11:20 bupropion [From Wellbutrin] Allergy Intermediate Hives Verified 08/19/22 11:21 oxycodone [From Percocet] Allergy Intermediate Hives Verified 08/19/22 11:21 Penicillins Allergy Intermediate Hives Verified 08/19/22 11:20 Exam Narrative Exam Narrative: Gen-Adult woman alert and oriented no distress Chest-Non labored resp Right breast-Marked with my initials. Assessment & Plan Assessment and plan (1) Intraductal papilloma of right breast: Status: Acute Assessment & Plan narrative: 37 y.o woman with a symptomatic right breast intra ductal pappilloma here for a right lumpectomy. She continues to have nipple discharge and is requesting excision for diagnostic purpose. Overview of the operation was discussed with the patient. Operative risks including bleeding, infection, recurrence, need for further intervention dependent on pathology was discussed. Questions have been answered and they are in agreement with this plan. Time Spent With Patient Critical Care time: I spent a total of [] minutes of critical care time on this patient's care today; this time is exclusive of procedural time.
[2022-08-19] MEDS: LACTATED RINGERS 1,000 ML 100 ML IV (12:00)
[2022-08-19] MEDS: CLINDAMYCIN 900 MG/50 ML PIGGYBACK 50 MG IV (12:05)
[2022-08-19] MEDS: BUPIVACAINE 0.5% W/ EPI (PF) 30 ML VIAL INJ (12:18)
--- NOTE | 2022-08-19 13:00 | PM.OP.1 ---
Operative Date/Time/Diagnoses Date of procedure: 08/19/22 Time of procedure: 13:00 Pre-op diagnosis: Right intraductal papilloma Post-op diagnosis: same Procedure & Clinicians Procedure: Right lumpectomy Same procedure as scheduled: Yes Indications: 37-year-old woman with a right 1 cm intraductal papilloma with bloody nipple discharge here for diagnostic and therapeutic lumpectomy Surgeon: Cooper Yadav Click Yes if Unassisted: Yes Anesthesia Type: General Operative Notes Findings: Less than 1 cm right breast mass 7 o'clock position consistent in appearance papilloma Specimen(s): other (Right breast mass. Short stitch superior long stitch lateral) Estimated Blood Loss (mL): 20 Procedure in detail: Patient was brought to the operating room placed supine on the table. She received clindamycin prior to skin incision. Bilateral lower extremity compression devices were applied. General anesthesia was induced she was intubated with an LMA. She was prepped and draped in sterile fashion. Time-out performed. A curvilinear incision in the nipple areolar complex was made. The subcutaneous tissue was divided. At the 7 o'clock position within 2 cm of the nipple there was a palpable papilloma within the breast tissue. The papilloma was grasped and excised with a rim of normal parenchyma. The specimen was marked short stitch superior long stitch lateral and passed off the field. Hemostasis was checked. There were no other palpable masses within the proximity of the nipple. 20 mL of 1% lidocaine was injected into the subcutaneous tissue. The wound was irrigated and then closed with Vicryl and a running 4-0 Monocryl followed by Dermabond. She tolerated the procedure well. Extubated and transferred to recovery in stable condition. Complications: none Post-operative Condition: stable Disposition: same day surgery
--- NOTE | 2022-08-19 13:48 | SUR.PHASEII ---
1340: Pt A&Ox4, reports pain as tolerable, and denies any distress. Discharge instructions reviewed with pt with time allowed for questions. IV DC'd intact, pt left unit via W/C with this RNs assist to ER entrance where spouse was waiting to transport pt home.
== END 2022-08-19 13:40 | disposition home or self-care (01) ==
PROVIDERS: PCP Family Medicine; Referring Provider Surgery; Visit Provider Surgery
PROC: (CPT 19301; principal; 2022-08-19 12:15)
DX: D24.1 Benign neoplasm of right breast (principal)
CPT/HCPCS: 19301; 81025; 82962; J0330; J1100; J1200; J1885; J2405; J2704; J3010